=== PATIENT | female | born 1970 | race Caucasian/White ===

== ENCOUNTER 2018-08-24 08:50 | Day surgery (SDC) | payer BC ==
[~2018-08-24] VITALS: Ht 157.5 cm; Wt 83.5 kg
[~2018-08-24 08:50] MED LIST: ACEBUTOLOL HCL200 MG PO; ALLEGRA ALLERG180 MG PO; BENADRYL25 MG PO; EXCEDRIN EXTRA1 EAC1 PO; FLONASE2 SPRAY NS; JOLESSA1 EACH PO; MELATONIN1 MG PO; METOPROLOL SUC100 MG PO; TYLENOL325 M1 PO; ZANTAC150 MG PO; ZESTRIL10 MG PO
--- NOTE | 2018-08-24 13:28 | NUR ---
08/24/18 1328 Lu[address] Acevedo SN 1307- PT ARRIVES IN PACU. HOLLAND MARQUIS USING JAW LIST TO ASIST PT WITH BREATHING. PT TOLERATES THIS WELL. LYNETTE CAMERON AT BEDSIDE INFORMING TOBIAS AND HOLLAND MARQUIS ABOUT HEART RHYTHMS DURING SURGERY. LYNETTE CAMERON REPORTS PT HAS FREQUENT PVC'S AND HAD BEEN IN BIGEMINY AND TRIGEMINY THROUGHOTU PROCEDURE. STATES THIS IS PT'S BASELINE. RESPS ARE EVEN AND UNLABORED, 02 SATAS HIGH 90S ON 6 L VIA MASK. PT UNABLE TO REPORT PAIN NAUSEA AND DIZINESS AT THIS TIME. 1310- PT AROUSES TO VERBAL AND NOXIOUS STIMULI. OPENS EYES BUT DRIFTS BACK TO SLEEP. RESPS EVEN AND UNLABORED, 02 SATS HIGH 90S ON 6L VIA MASK. UNABLE TO REPORT PAIN NAUSEA AND DIZZINESS AT THIS TIME. 1313- PT 02 REMVOED AT THIS TIME. TOLERATING WELL. RESPS EVEN AND UNLABORED. 02 SAT HIGH 90S ON RA. PT DENEIS ANY PAIN NAUSEA AND DIZZINESS AT THIS TIME. RESTING IN SEMI FOWLERS WITH EYES CLOSED. 1316- PT HAVING FREQUENT PVC'S AND IS PERIODICALLY IN TRIGEMINY. LYNETTE CAMERON AWARE OF THIS. PT REMAIN ASYMPTOMATIC RESTING IN BED WITH EYES CLOSED. DENIES ANY PAIN NAUSEA AND DIZZINESS AT THIS TIME.
[2018-08-24] MEDS ORDERED: OXYCODON-ACETA1 EAC2 PO (13:30)
[2018-08-24] MEDS ORDERED: TYLENOL325 MG PO (13:30)
[2018-08-24] MEDS ORDERED: IBUPROFEN600 MG PO (13:30)
--- NOTE | 2018-08-24 14:08 | NUR ---
PT ARRIVES TO DS RM 4 FROM PACU AWAKE, BUT DROWSY. PT RESP EVEN AND UNLABORED WITH SATS ABOVE 94%. PT DENIES ANY NAUSEA AND RATES PAIN 2/10 AND COMF[address]ABLE. SCD'S IN PLACE. PT PROVIDED WARM BLANKETS, WATER, AND PUDDING. SPOUSE AT BEDSIDE. CALL LIGHT WITHIN REACH.
--- NOTE | 2018-08-24 15:10 | NUR ---
PT CONT TO REST IN BED WITH EVEN, UNLABORED RESP. PT TOLERATES CRACKERS AND PUDDING WELL WITH NO NAUSEA. PT STATES PAIN 3/10 AND "PAIN IN SHOULDERS." PT EDUCATED ABOUT PAIN AND REQUESTS ORAL PAIN MEDICATION; SEE EMAR. PT SPOUSE RETURNS TO ROOM FROM PHARMACY. PT ENCOURAGED TO USE CALL LIGHT WHEN URGE TO VOID.
--- NOTE | 2018-08-24 16:14 | NUR ---
1600: PT USES CALL LIGHT TO ALERT RN OF URGE TO VOID. PT STANDS AT SIDE OF BED AND DENIES ANY NAUSEA OR DIZZINESS. PT AMBULATES WITH STEADY GAIT. VOIDS 300 MLS YELLOW URINE WITH NO PROBLEMS. PT BACK TO RM AND REQUESTS TO LAY DOWN ABD IS "HURTING." 1610: PT ORDERED LUNCH. PT STATES SHE FEELS LESS PAINFUL ONCE LAYING DOWN. PT SPOUSE AT BEDSIDE.
--- NOTE | 2018-08-24 17:40 | NUR ---
1700: PT TOLERATES LUNCH WELL, AND STATES "THAT MADE ALL THE DIFFERENCE, I AM FEELING GOOD!" DC INSTRUCTIONS GIVEN IN PRESENCE OF PT AND SPOUSE, ALL QUESTIONS ADDRESSED. PT DRESSES SELF WITH SPOUSE IN PT RM. 1730: PT DC'S FROM DS RM 4 VIA WC TO PERSONAL VEHICLE AT HOSPITAL MAIN ENTRANCE TO HOME.
--- NOTE | 2018-08-26 21:40 | OR ---
[facility] [address], [place] [address] Signed DATE OF OPERATION: 08/24/2018 SURGEON: Zoran Clayton MD PREOPERATIVE DIAGNOSES: 1. Chronic acalculous cholecystitis. 2. History of persistent and recurrent cardiac dysrhythmia. POSTOPERATIVE DIAGNOSES: 1. Chronic acalculous cholecystitis. 2. History of persistent and recurrent cardiac dysrhythmia. PROCEDURE: 1. Laparoscopic cholecystectomy with intraoperative cholangiogram. 2. Surgeon-directed fluoroscopy. ANESTHESIA: General endotracheal; Bella Jaffe CRNA. INDICATION: This 48-year-old white woman is a patient of KRISS Hart. She was referred for findings highly suggestive of biliary disease including pain in the right subcostal area. This has been going on and off for possibly 8 years. Eight years ago, she had a gallbladder ultrasound showing "sludge" of the gallbladder. She was not otherwise recommended to proceed with operation. She has also undergone a CCK-HIDA test, which reproduced her symptoms of right subcostal pain and some nausea. She has been thoroughly evaluated by a assistant director of nursing and has undergone cardiac rhythm evaluation and ablation. She is admitted at this time to undergo cholecystectomy for probable acalculous cholecystitis as manifested by symptoms and a decreased ejection fraction on CCK-HIDA test of 17%. The risks of bleeding, infection, bile duct injury, need for open procedure, failure to cure her symptoms, and importantly problems related to cardiovascular dysrhythmia were also reviewed and well understood by both the patient and her , they understand and wished to proceed. FINDINGS: Indeed the gallbladder was chronically inflamed. There was no sign of acute cholecystitis proper only chronic inflammation of the gallbladder and its mucosa. There was no sign of stones. Cholangiogram was normal. The liver was normal. There were no other findings of concern. Electronically Signed By: ZORAN CLAYTON MD 08/26/18 2140 PATIENT NAME: SAUL NIX OPERATIVE REPORT DATE OF : 74 REPORT #: [id number] PHYSICIAN: ZORAN CLAYTON MD PCP: LETTY FOUNTAIN MD REPORT IS CONFIDENTIAL AND NOT TO BE RELEASED WITHOUT AUTHORIZATION [facility] [address], [place] [address] Signed As regard to her dysrhythmia, she did have PVCs from time to time markedly reduced when pneumoperitoneum was relieved at conclusion of the procedure. She had no hypotension or other issues related to anesthesia. DESCRIPTION OF PROCEDURE: The patient was brought to the operating room, given a general endotracheal anesthetic. Preoperative antibiotic Ancef was given. Sequential compression device stockings used and heparin subcutaneously administered. The abdomen was prepared with chlorhexidine solution and draped sterilely. An infraumbilical incision was made and using an open Vincent cannula technique, pneumoperitoneum was achieved to a level of 14 mmHg with carbon dioxide gas. Good visualization was noted. Pneumoperitoneum was decreased to 10 mmHg with respect to her known cardiac dysrhythmia. Three additional trocars were placed in usual configuration in the subxiphoid, right midclavicular, and right anterior axillary line. The gallbladder was elevated cephalad and a few filmy adhesions of the omentum to the undersurface of the gallbladder were taken down with blunt dissection. The gallbladder was elevated more fully and retracted laterally and using blunt and electrocautery dissection, the triangle of Calot was dissected free. The cystic duct was rather small. A clip was applied across gallbladder cystic duct junction after good visualization of the critical view of safety. A transverse choledochotomy in the cystic duct allowed for egress of some clear bile. Using an Simms type cholangiocatheter, intraoperative cholangiography was undertaken showing free flow of contrast in biliary tree with prompt emptying into the duodenum. With some additional infusion of contrast, retrograde filling of the common hepatic duct and biliary radicles was noted as well, which was normal. The catheter was removed and the cystic duct was triply clipped and divided. The gallbladder was dissected free in a retrograde fashion using electrocautery. The gallbladder was removed through the infraumbilical port site without problem. Reinspection of subhepatic space showed no sign of bile leak, bleeding or other problems. Irrigation was undertaken and suctioned free. The trocars were removed under direct visualization showing no sign of bleeding. The infraumbilical fascial incision was reapproximated with interrupted 0 Vicryl suture. All wounds were copiously irrigated with saline solution. Skin closed with interrupted 3-0 Vicryl. A 10 mL of 0.25% Marcaine with epinephrine was injected for local analgesic effect in total. Examination the gallbladder once opened showed chronic inflammatory change of the mucosa, but no sign of stones or neoplasm. Steri-Strips were applied to the wounds. The patient was ultimately extubated and transferred to recovery in good condition. CONCLUDING DIAGNOSIS: 1. Chronic acalculous cholecystitis. 2. Cardiac dysrhythmia (premature ventricular contractions), stable. Electronically Signed By: ZORAN CLAYTON MD 08/26/18 2143 PATIENT NAME: SAUL NIX OPERATIVE REPORT DATE OF : 74 REPORT #: [id number] PHYSICIAN: ZORAN CLAYTON MD PCP: LETTY FOUNTAIN MD REPORT IS CONFIDENTIAL AND NOT TO BE RELEASED WITHOUT AUTHORIZATION [facility] [address] [place], [place] [address] Signed MD ASHLEE Nunn/DANIELLE /[id number] cc: CASSIDY Preciado MD [address] [place] [address] Copies: KAYLEN IBRAHIM PA-C ~ Electronically Signed By: ZORAN CLAYTON MD 08/26/18 2140 PATIENT NAME: SAUL NIX OPERATIVE REPORT DATE OF : 74 REPORT #: [id number] PHYSICIAN: ZORAN LCAYTON MD PCP: LETTY FOUNTAIN MD REPORT IS CONFIDENTIAL AND NOT TO BE RELEASED WITHOUT AUTHORIZATION
== END 2018-08-24 17:30 | disposition home or self-care (01) ==
LOC: DS 08:50
PROVIDERS: Surgery
PROC: BF13YZZ Fluoroscopy of Gallbladder and Bile Ducts using Other Contrast (ICD-10-PCS; 2018-08-24)
PROC: 0FT44ZZ Resection of Gallbladder, Percutaneous Endoscopic Approach (ICD-10-PCS; principal; 2018-08-24 10:15)
DX: K81.1 Chronic cholecystitis (principal); I49.3 Ventricular premature depolarization; K21.9 Gastro-esophageal reflux disease without esophagitis; I50.9 Heart failure, unspecified; E66.9 Obesity, unspecified; R53.82 Chronic fatigue, unspecified; F41.1 Generalized anxiety disorder; Z88.5 Allergy status to narcotic agent; Z88.8 Allergy status to other drugs, medicaments and biological substances; Z68.33 Body mass index [BMI] 33.0-33.9, adult; Z79.51 Long term (current) use of inhaled steroids; Z79.82 Long term (current) use of aspirin; Z79.899 Other long term (current) drug therapy
CPT/HCPCS: 00790; 74300; J0690; J1100; J1644; J2250; J2405; J2704; J3010; J7120; Q9967